=== PATIENT | female | born 1945 | race Caucasian/White ===

== ENCOUNTER 2018-11-29 15:41 | Inpatient (IN) | payer OTHER, MEDICAID ==
[~2018-11-29] VITALS: Ht 152.4 cm; Wt 77.1 kg
[~2018-11-29 15:41] MED LIST: ASPI-1158 PO; ERGO500013 PO; FLUO40CA49 PO; FLUT16SP15; LORA10TA7 PO; OMEP40CA34 PO; RANI300T4 PO; SIMV40TA5 PO
[2018-11-29] MEDS ORDERED: ASPIRIN 81MG TABLET PO ONE (16:30)
[2018-11-29 16:44] LABS: BASOPHILS % 1.1 % (0.0-2.0); EOSINOPHILS % 3.5 % (0.0-5.0); HEMATOCRIT. 40.9 % (36.0-48.0); HEMOGLOBIN. 13.5 g/dL (12.0-16.0); LYMPHOCYTES % 34.1 % (20.0-50.0); MEAN CORPUSCULAR HEMOGLOBIN 29.6 pg (28.0-32.0); MEAN CORPUSCULAR VOLUME 89.9 fL (81.0-99.0); MEAN PLATELET VOLUME 8.1 fl (7.4-10.4); MONOCYTES % 6.9 % (2.0-8.0); NEUTROPHILS % 54.4 % (40.0-76.0); PLATELET 249 x1000/uL (130-400); RED BLOOD CELL COUNT 4.55 mill/uL (4.2-5.4); RED CELL DISTRIBUTION WIDTH 14.6 % (11.6-14.6)
[2018-11-29 16:48] LABS: CHLORIDE 104 mEq/L (98-107)
[2018-11-29] MEDS ORDERED: MECLIZINE 25MG TABLET PO ONE (17:30)
[2018-11-29] MEDS ORDERED: ONDANSETRON HCL 4MG/2ML INJ IV ONE (17:30)
[2018-11-29] MEDS ORDERED: MORPHINE SULFATE 2 MG/ML CPJ (NOT FOR IM USE) IV ONE (17:30)
[2018-11-29] MEDS ORDERED: MORPHINE SULFATE 4 MG/ML CPJ (NOT FOR IM USE) IV NR (19:00)
[2018-11-29] MEDS ORDERED: ONDANSETRON HCL 4MG/2ML INJ IV PRN (19:30)
[2018-11-29] MEDS ORDERED: IPRATROPIUM/ALBUTEROL 0.5-3(2.5)MG/3ML NEB HHN PRN (19:30)
[2018-11-29] MEDS ORDERED: ACETAMINOPHEN 325MG TABLET PO PRN (19:30)
[2018-11-29] MEDS ORDERED: ZOLPIDEM TARTRATE 5MG TABLET PO PRN (19:30)
[2018-11-29] MEDS ORDERED: MECLIZINE 25MG TABLET PO PRN (19:30)
[2018-11-29 20:00] VITALS: BP 113/53
[2018-11-29 20:24] LABS: LDL CHOLESTEROL 91 mg/dL (5-100)
[2018-11-29 20:25] LABS: CREATINE KINASE 48 IU/L (26-192); HDL CHOLESTEROL 44 mg/dL (40-59)
[2018-11-29 20:27] LABS: CREATINE KINASE MB FRACTION < 1.0 ng/mL (0.5-3.6)
[2018-11-29 22:29] VITALS: BP 122/50
[2018-11-30] VITALS: BP 118/54
[2018-11-30 04:00] VITALS: BP 127/60
[2018-11-30] MEDS: OMEPRAZOLE 20MG CAPSULE EXTENDED RELEASE PO SCH (06:35)
[2018-11-30] MEDS: ATORVASTATIN CALCIUM 40MG TABLET PO SCH ×2 (06:35→21:16)
[2018-11-30 06:51] LABS: BASOPHILS % 0.7 % (0.0-2.0); EOSINOPHILS % 3.3 % (0.0-5.0); HEMATOCRIT. 39.7 % (36.0-48.0); HEMOGLOBIN. 13.3 g/dL (12.0-16.0); LYMPHOCYTES % 41.2 % (20.0-50.0); MEAN CORPUSCULAR HEMOGLOBIN 30.1 pg (28.0-32.0); MEAN CORPUSCULAR VOLUME 89.8 fL (81.0-99.0); MEAN PLATELET VOLUME 8.2 fl (7.4-10.4); MONOCYTES % 6.2 % (2.0-8.0); NEUTROPHILS % 48.6 % (40.0-76.0); PLATELET 248 x1000/uL (130-400); RED BLOOD CELL COUNT 4.42 mill/uL (4.2-5.4); RED CELL DISTRIBUTION WIDTH 14.7 % (11.6-14.6)
[2018-11-30 06:57] LABS: CHLORIDE 106 mEq/L (98-107)
[2018-11-30 08:00] VITALS: BP 104/59
[2018-11-30] MEDS: ASPIRIN 81MG TABLET PO SCH (08:58)
[2018-11-30] MEDS: FLUOXETINE HCL 20MG CAPSULE PO SCH (08:58)
[2018-11-30 12:00] VITALS: BP 109/50
[2018-11-30] MEDS: ENOXAPARIN 40MG/0.4ML SYR SUBCUT SCH (14:50)
[2018-11-30 16:00] VITALS: BP 103/53
[2018-11-30] MEDS ORDERED: CLONIDINE 0.1MG TABLET PO PRN (16:00)
[2018-11-30 18:55] LABS: CLARITY URINE CLEAR (CLEAR); COLOR URINE YELLOW (YELLOW); KETONES URINE NEGATIVE (NEGATIVE); LEUKOCYTE ESTERASE URINE TRACE (NEGATIVE); NITRITE URINE POSITIVE (NEGATIVE); OCCULT BLOOD URINE NEGATIVE (NEGATIVE); PH URINE 5.5 (4.5-8.0); PROTEIN URINE NEGATIVE (NEGATIVE); SPECIFIC GRAVITY URINE 1.028 (1.005-1.030); UROBILINOGEN URINE 0.2 E.U./dL (0.2-1.0)
[2018-11-30 20:00] VITALS: BP_SYST 101; BP_SYST 106; BP_SYST 96; BP_DIAS 50; BP_DIAS 52; BP_DIAS 53
[2018-12-01] VITALS: BP 110/56
[2018-12-01 04:00] VITALS: BP 116/59
[2018-12-01] MEDS: OMEPRAZOLE 20MG CAPSULE EXTENDED RELEASE PO SCH (06:27)
[2018-12-01 07:12] LABS: CHLORIDE 106 mEq/L (98-107)
[2018-12-01 07:24] LABS: BASOPHILS % 0.7 % (0.0-2.0); CREATINE KINASE 31 IU/L (26-192); EOSINOPHILS % 3.2 % (0.0-5.0); HEMATOCRIT. 39.2 % (36.0-48.0); LYMPHOCYTES % 37.7 % (20.0-50.0); MEAN CORPUSCULAR HEMOGLOBIN 29.9 pg (28.0-32.0); MEAN CORPUSCULAR VOLUME 90.2 fL (81.0-99.0); MEAN PLATELET VOLUME 8.2 fl (7.4-10.4); NEUTROPHILS % 52.4 % (40.0-76.0); PLATELET 233 x1000/uL (130-400); RED BLOOD CELL COUNT 4.34 mill/uL (4.2-5.4); RED CELL DISTRIBUTION WIDTH 14.4 % (11.6-14.6)
[2018-12-01 07:33] LABS: CREATINE KINASE MB FRACTION < 1.0 ng/mL (0.5-3.6)
[2018-12-01 08:00] VITALS: BP_SYST 110; BP_SYST 112; BP_SYST 115; BP_DIAS 56; BP_DIAS 62
[2018-12-01] MEDS: ASPIRIN 81MG TABLET PO SCH (08:49)
[2018-12-01] MEDS: ENOXAPARIN 40MG/0.4ML SYR SUBCUT SCH (08:49)
[2018-12-01] MEDS: FLUOXETINE HCL 20MG CAPSULE PO SCH (08:49)
[2018-12-01] MEDS ORDERED: HYDROCODONE/ACETAMINOPHEN 5/325MG TABLET PO PRN (12:30)
[2018-12-01] MEDS ORDERED: CEFTRIAXONE 1 G PREMIX 50 ML IV SCH (14:00)
[2018-12-01 14:30] VITALS: BP 117/58
== END 2018-12-01 16:40 | disposition home or self-care (01) | DRG 74 ==
LOC: ER 15:45 → 5WST 18:20 → EDBEDREQTM 18:25 → EDBEDREQ 18:25 → ENRESERV 20:11
PROVIDERS: ADMIT Internal Medicine; ATTEND Internal Medicine
DX: G90.8 Other disorders of autonomic nervous system (principal); N39.0 Urinary tract infection, site not specified; E11.9 Type 2 diabetes mellitus without complications; E78.00 Pure hypercholesterolemia, unspecified; E78.1 Pure hyperglyceridemia; E78.5 Hyperlipidemia, unspecified; F32.9 Major depressive disorder, single episode, unspecified; F41.9 Anxiety disorder, unspecified; I10 Essential (primary) hypertension; J44.9 Chronic obstructive pulmonary disease, unspecified; K52.9 Noninfective gastroenteritis and colitis, unspecified; E66.9 Obesity, unspecified; K21.9 Gastro-esophageal reflux disease without esophagitis; M19.90 Unspecified osteoarthritis, unspecified site; Z96.652 Presence of left artificial knee joint; Z86.73 Personal history of transient ischemic attack (TIA), and cerebral infarction without residual deficits; Z68.33 Body mass index [BMI] 33.0-33.9, adult; Z79.82 Long term (current) use of aspirin; Z79.899 Other long term (current) drug therapy; W18.39XA Other fall on same level, initial encounter; Y93.89 Activity, other specified; Y92.89 Other specified places as the place of occurrence of the external cause; Y99.8 Other external cause status
CPT/HCPCS: 36415; 71045; 80048; 80061; 82550; 82553; 83735; 83880; 84443; 84484; 85379; 93005; 93306; 93970; 97116; 97162; 99285; J0696; J1650; J2270; J2405; J7050; J8597

== ENCOUNTER 2019-03-19 18:31 | Emergency (ER) | payer OTHER, MEDICAID ==
[~2019-03-19] VITALS: Ht 162.6 cm; Wt 83.0 kg
[2019-03-19] MEDS ORDERED: KETOROLAC 30MG/ML VIAL IV STA (19:42)
[2019-03-19] MEDS ORDERED: SODIUM CHLORIDE 0.9% 1,000 ML IV ONE (19:42)
[2019-03-19 19:59] LABS: BASOPHILS % 1.1 % (0.0-2.0); EOSINOPHILS % 1.4 % (0.0-5.0); HEMATOCRIT. 38.2 % (36.0-48.0); HEMOGLOBIN. 12.8 g/dL (12.0-16.0); LYMPHOCYTES % 29.9 % (20.0-50.0); MEAN CORPUSCULAR HEMOGLOBIN 30.2 pg (28.0-32.0); MEAN PLATELET VOLUME 7.9 fl (7.4-10.4); NEUTROPHILS % 61.6 % (40.0-76.0); PLATELET 254 x1000/uL (130-400); RED BLOOD CELL COUNT 4.25 mill/uL (4.2-5.4); RED CELL DISTRIBUTION WIDTH 14.4 % (11.6-14.6)
[2019-03-19 20:04] LABS: CHLORIDE 109 mEq/L (98-107)
[2019-03-19 20:05] LABS: PROTHROMBIN TIME 10.5 sec (9.6-11.0)
[2019-03-19 21:50] VITALS: BP 140/56
== END 2019-03-19 21:50 | disposition home or self-care (01) ==
LOC: ER 18:31
DX: R10.32 Left lower quadrant pain (principal); E11.9 Type 2 diabetes mellitus without complications; E78.00 Pure hypercholesterolemia, unspecified; I10 Essential (primary) hypertension; Z96.659 Presence of unspecified artificial knee joint; Z98.890 Other specified postprocedural states; Z79.82 Long term (current) use of aspirin; Z79.899 Other long term (current) drug therapy
CPT/HCPCS: 36415; 74176; 80053; 82962; 83690; 85025; 85610; 96374; 99284; J1885; J7030

== ENCOUNTER 2019-08-05 13:08 | Emergency (ER) | payer MEDICARE, MEDICAID ==
[~2019-08-05] VITALS: Ht 165.1 cm; Wt 75.0 kg
[2019-08-05] MEDS ORDERED: ACETAMINOPHEN 325MG TABLET PO ONE (15:00)
[2019-08-05] MEDS ORDERED: TETANUS, DIPHTHERIA, PERTUSSIS VAC/PF 0.5ML (>7YR OLD) IM ONE (15:00)
[2019-08-05 16:20] VITALS: BP 130/64
== END 2019-08-05 16:26 | disposition home or self-care (01) ==
LOC: ER 13:08
DX: S00.81XA Abrasion of other part of head, initial encounter (principal); S81.811A Laceration without foreign body, right lower leg, initial encounter; E78.00 Pure hypercholesterolemia, unspecified; Z79.82 Long term (current) use of aspirin; E11.9 Type 2 diabetes mellitus without complications; I10 Essential (primary) hypertension; Z96.659 Presence of unspecified artificial knee joint; W01.0XXA Fall on same level from slipping, tripping and stumbling without subsequent striking against object, initial encounter; Y93.89 Activity, other specified; Y92.018 Other place in single-family (private) house as the place of occurrence of the external cause
CPT/HCPCS: 90471; 90715; 99284

== ENCOUNTER 2020-09-28 21:23 | Inpatient (IN) | payer MEDICARE, MEDICAID ==
[~2020-09-28] VITALS: Ht 121.9 cm; Wt 67.6 kg
[~2020-09-28 21:23] MED LIST changes: -ASPI-1158 PO; +ASPI-1406 PO; +OMEP40CA12 PO; -OMEP40CA34 PO; +SIMV-46 PO; -SIMV40TA5 PO
[2020-09-28] MEDS ORDERED: ALBUTEROL (0.083%) 2.5MG/3ML NEB HHN STA (22:09)
[2020-09-28] MEDS ORDERED: METHYLPREDNISOLONE SOD SUCC 125 MG/2 ML VIAL IV STA (22:09)
[2020-09-28] MEDS ORDERED: IPRATROPIUM BROMIDE (0.02%) 0.5MG/2.5ML NEB HHN STA (22:09)
[2020-09-28] MEDS ORDERED: CEFTRIAXONE 1 G PREMIX 50 ML IV ONE (22:15)
[2020-09-28] MEDS ORDERED: AZITHROMYCIN 500 MG in DEXT 5% WATER 250 ML IV ONE (22:15)
[2020-09-28 22:43] LABS: BASOPHILS % 0.4 % (0.0-2.0); EOSINOPHILS % 12.6 % (0.0-5.0); HEMATOCRIT. 38.8 % (36.0-48.0); HEMOGLOBIN. 12.8 g/dL (12.0-16.0); LYMPHOCYTES % 43.4 % (20.0-50.0); MEAN CORPUSCULAR HEMOGLOBIN 29.1 pg (28.0-32.0); MEAN CORPUSCULAR VOLUME 88.5 fL (81.0-99.0); MEAN PLATELET VOLUME 8.7 fl (7.4-10.4); MONOCYTES % 4.6 % (2.0-8.0); PLATELET 236 x1000/uL (130-400); RED BLOOD CELL COUNT 4.39 mill/uL (4.2-5.4); RED CELL DISTRIBUTION WIDTH 14.3 % (11.6-14.6)
[2020-09-28 22:48] LABS: CHLORIDE 106 mEq/L (98-107)
[2020-09-28] MEDS ORDERED: SODIUM CHLORIDE 0.9% 1,000 ML IV ONE (23:30)
[2020-09-28] MEDS ORDERED: POTASSIUM CHLORIDE INJ 40 MEQ in DEXT 5% WATER 250 ML IV ONE (23:30)
[2020-09-29] MEDS ORDERED: MIRT45TA83 PO (11:36)
[2020-09-29] MEDS ORDERED: MONT10TA21 MT (11:36)
[2020-09-29] MEDS ORDERED: ESCI10TA PO (11:36)
[2020-09-29] MEDS ORDERED: MELO-104 PO (11:36)
[2020-09-29 12:00] VITALS: BP_SYST 159; BP_SYST 173; BP_DIAS 70; BP_DIAS 85
[2020-09-29] MEDS ORDERED: CLONIDINE 0.1MG TABLET PO PRN (12:30)
[2020-09-29] MEDS ORDERED: ONDANSETRON HCL 4MG/2ML INJ IV PRN (12:30)
[2020-09-29] MEDS ORDERED: ACETAMINOPHEN 325MG TABLET PO PRN (12:30)
[2020-09-29] MEDS ORDERED: ENOXAPARIN 80MG/0.8ML SYR SUBCUT SCH (12:30)
[2020-09-29] MEDS ORDERED: DEXTROSE 50% WATER 50ML SYRINGE IV PRN (12:30)
[2020-09-29] MEDS ORDERED: ALBUTEROL 6.7GM HFA INHALER ORI PRN (12:30)
[2020-09-29] MEDS ORDERED: CEFTRIAXONE 1,000 MG in DEXTROSE 5% WATER 50 ML IV SCH (13:00)
[2020-09-29] MEDS ORDERED: BLOOD SUGAR DIAGNOSTIC STRIP TEST SCH (13:00)
[2020-09-29] MEDS ORDERED: INSULIN LISPRO 100 UNITS/ML SUBCUT SCH (13:00)
[2020-09-29] MEDS ORDERED: AZITHROMYCIN 500 MG in DEXT 5% WATER 250 ML IV SCH (14:00)
[2020-09-29 14:29] VITALS: BP 128/68
[2020-09-29] MEDS ORDERED: TRAZODONE HCL 50MG TABLET PO PRN (21:00)
[2020-09-30] MEDS ORDERED: CEFTRIAXONE 1 G PREMIX 50 ML IV SCH (09:00)
== END 2020-09-29 15:36 | disposition left against medical advice (07) | DRG 871 ==
LOC: ER 21:23 → 7EST 23:56 → ENRESERV 09-29 08:18 → 7EST 09-29 10:17
PROVIDERS: ADMIT Family Medicine Adult Medicine; ATTEND Family Medicine Adult Medicine
DX: A41.9 Sepsis, unspecified organism (principal); J18.9 Pneumonia, unspecified organism; J96.01 Acute respiratory failure with hypoxia; E87.2 Acidosis; J45.901 Unspecified asthma with (acute) exacerbation; Z68.42 Body mass index [BMI] 45.0-49.9, adult; J98.11 Atelectasis; E11.65 Type 2 diabetes mellitus with hyperglycemia; E66.01 Morbid (severe) obesity due to excess calories; E78.00 Pure hypercholesterolemia, unspecified; E87.6 Hypokalemia; I10 Essential (primary) hypertension; Z96.659 Presence of unspecified artificial knee joint; N19 Unspecified kidney failure; Z20.822 Contact with and (suspected) exposure to COVID-19; Z79.899 Other long term (current) drug therapy; Z86.73 Personal history of transient ischemic attack (TIA), and cerebral infarction without residual deficits; Z79.82 Long term (current) use of aspirin
CPT/HCPCS: 36415; 71045; 80053; 82962; 83605; 84145; 85025; 93005; 96365; 99291; J0456; J0696; J1650; J2930; J3480; J7060; U0003